=== PATIENT | female | born 1955 | race Caucasian/White ===

== ENCOUNTER 2024-11-27 18:41 | Emergency (ER) | payer MEDICARE, OTHER ==
[~2024-11-27] VITALS: Ht 157.5 cm; Wt 45.4 kg
[2024-11-27] MEDS: clonazePAM 1 MG TABLET PO ONE (20:24)
[2024-11-27] MEDS ORDERED: clonazePAM 1 MG TABLET ONE (20:24)
[2024-11-27] MEDS ORDERED: CLON2TAB11 PO (20:25)
[2024-11-27 21:00] VITALS: BP 132/66; TEMP 97.5; O2SAT 100
== END 2024-11-27 21:00 | disposition home or self-care (01) ==
LOC: ER 18:45
DX: F13.20 Sedative, hypnotic or anxiolytic dependence, uncomplicated (principal); F11.20 Opioid dependence, uncomplicated; E03.9 Hypothyroidism, unspecified; Z76.0 Encounter for issue of repeat prescription